=== PATIENT | male | born 1995 | race Caucasian/White ===

== ENCOUNTER 2021-07-10 14:07 | Emergency (ER) | payer OTHER ==
[~2021-07-10] VITALS: Ht 175.3 cm; Wt 97.5 kg
[2021-07-10] MEDS ORDERED: COQ1050 MG PO (14:32)
[2021-07-10] MEDS ORDERED: MAGNESIUM100 MG PO (14:32)
== END 2021-07-10 16:06 | disposition home or self-care (01) ==
LOC: ED 14:07
DX: R10.11 Right upper quadrant pain (principal); Z88.0 Allergy status to penicillin
CPT/HCPCS: 76705; 80053; 81001; 83690; 85025; 99284-25

== ENCOUNTER 2022-04-07 15:21 | Emergency (ER) | payer OTHER ==
[~2022-04-07] VITALS: Ht 175.3 cm; Wt 86.6 kg
[~2022-04-07 15:21] MED LIST: COQ1050 MG PO; MAGNESIUM100 MG PO
[2022-04-07] MEDS ORDERED: CARAFATE1 GM PO (20:41)
[2022-04-07] MEDS ORDERED: PROTONIX20 MG PO (20:41)
== END 2022-04-07 21:14 | disposition home or self-care (01) ==
LOC: ED 15:21
DX: R10.13 Epigastric pain (principal); Z88.0 Allergy status to penicillin
CPT/HCPCS: 36415; 74176; 80053; 81001; 83690; 85025; 96374; 99284-25; J1885; J7030

== ENCOUNTER 2022-10-18 12:04 | Emergency (ER) | payer OTHER ==
[~2022-10-18] VITALS: Ht 175.3 cm; Wt 82.0 kg
[~2022-10-18 12:04] MED LIST changes: +CARAFATE1 GM PO; +PROTONIX20 MG PO
== END 2022-10-18 17:12 | disposition home or self-care (01) ==
LOC: ED 12:04
DX: S30.1XXA Contusion of abdominal wall, initial encounter (principal); Z88.0 Allergy status to penicillin; W23.0XXA Caught, crushed, jammed, or pinched between moving objects, initial encounter
CPT/HCPCS: 36415; 74177; 80053; 85025; 99284-25; Q9967

== ENCOUNTER 2023-02-06 22:24 | Emergency (ER) | payer OTHER ==
[~2023-02-06] VITALS: Ht 175.3 cm; Wt 87.5 kg
[2023-02-06] MEDS ORDERED: CYCLOBENZAPRINE10 MG PO (23:18)
[2023-02-06] MEDS ORDERED: IBU800 MG PO (23:18)
== END 2023-02-06 23:29 | disposition home or self-care (01) ==
LOC: ED 22:24
DX: S39.012A Strain of muscle, fascia and tendon of lower back, initial encounter (principal); X50.1XXA Overexertion from prolonged static or awkward postures, initial encounter; Z88.0 Allergy status to penicillin
CPT/HCPCS: 99283; A9270